=== PATIENT | male | born 2000 | race Caucasian/White ===

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

== ENCOUNTER 2019-03-01 06:13 | Emergency (ER) | payer SELFPAY | END 2019-03-01 07:28 | disposition home or self-care (01) | LOC: ERS 06:13 | DX: L55.0 Sunburn of first degree (principal); F17.210 Nicotine dependence, cigarettes, uncomplicated | CPT/HCPCS: 99282 ==